=== PATIENT | female | born 1960 | race Caucasian/White ===

== ENCOUNTER 2019-08-29 12:43 | Outpatient (CLI) | payer OTHER ==
--- NOTE | 2019-08-30 09:26 | XRAY Report ---
Reason: LUMBAGO W/SCIATICA Procedure Date: 08/29/2019 Accession Number: [id number] / [id number] Procedure: XR - Lumbar Spine Complete CPT Code: Final Report FULL RESULT: EXAM: LUMBOSACRAL SPINE RADIOGRAPHY EXAM DATE: 08/29/2019 12:59 PM. CLINICAL HISTORY: Lumbago with sciatica. COMPARISONS: None. TECHNIQUE: 3 views. FINDINGS: 5 [id number] lumbar vertebral bodies. No vertebral body compressive change detected to indicate fracture. No pathologic subluxation. Mild disk space narrowing at L2-L3. Minimal associated vertebral body endplate osteophytic spurring. The imaged portions of the sacroiliac joints appear within normal limits. Surgical clips bilaterally in the true pelvis suggest previous tubal ligation. IMPRESSION: Mild degenerative changes in the upper lumbar spine. No fracture or pathologic subluxation identified. RADIA
== END 2019-08-29 12:44 | disposition home or self-care (01) ==
LOC: DI 12:43
PROVIDERS: ATTEND Nurse Practitioner Family
DX: M47.816 Spondylosis without myelopathy or radiculopathy, lumbar region (principal)
CPT/HCPCS: 72110

== ENCOUNTER 2019-09-05 08:24 | Outpatient (CLI) | payer OTHER ==
--- NOTE | 2019-09-05 16:22 | XRAY Report ---
Reason: SCIATICA Procedure Date: 09/05/2019 Accession Number: [id number] / [id number] Procedure: XR - Sacrum/Coccyx CPT Code: Final Report FULL RESULT: EXAM: SACRUM AND COCCYX RADIOGRAPHY EXAM DATE: 09/05/2019 08:41 AM. HISTORY: SCIATICA. Chronic back pain. COMPARISONS: LUMBAR SPINE COMPLETE 08/29/2019 12:49 PM. TECHNIQUE: 3 views. FINDINGS: Alignment: Normal. The sacrum and coccyx are normally aligned. Bones: Normal. No fracture or bone lesion. Joints: Normal. The sacroiliac joints and visualized hips are within normal limits. Soft Tissues: Clips from bilateral tubal ligation. IMPRESSION: Normal sacrum and coccyx radiography. RADIA
== END 2019-09-05 08:25 | disposition home or self-care (01) ==
LOC: DI 08:24
PROVIDERS: ATTEND Nurse Practitioner Family
DX: M54.40 Lumbago with sciatica, unspecified side (principal)
CPT/HCPCS: 72220

== ENCOUNTER 2019-10-27 11:11 | Outpatient (CLI) | payer OTHER | END 2019-10-27 11:12 | disposition home or self-care (01) | LOC: LAB 11:11 | PROVIDERS: ATTEND Surgery | DX: Z01.812 Encounter for preprocedural laboratory examination (principal); Z20.828 Contact with and (suspected) exposure to other viral communicable diseases; K92.1 Melena | CPT/HCPCS: 81599 ==

== ENCOUNTER 2019-10-31 06:18 | Day surgery (SDC) | payer OTHER ==
[2019-10-31] MEDS ORDERED: MIDAZOLAM 2 MG/2 ML VIAL IVP ONE (06:19)
[2019-10-31] MEDS ORDERED: fentaNYL 250 MCG/5 ML VIAL IVP ONE (06:19)
[2019-10-31] MEDS ORDERED: LACTATED RINGERS 1,000 ML IV ONE ×2 (06:20→08:52)
--- NOTE | 2019-10-31 09:30 | ANESTHESIA ---
Pre-Anesthesia VS, & Labs - Diagnosis screening colonoscopy - Procedure colonoscopy Vital Signs: Temp Pulse Resp BP Pulse Ox 36.5 C 67 16 129/76 98 10/31/19 09:15 10/31/19 09:15 10/31/19 09:15 10/31/19 09:15 10/31/19 09:15 Height 5 ft 3 in Weight (kg) 47.2 kg - NPO >8 hours - Is Patient ?: No Home Medications and Allergies Home Medications: Ambulatory Orders Meloxicam 7.5 mg PO 10/31/19 Acetaminophen [Tylenol] 650 mg PO Q6H PRN 02/29/16 Ibuprofen 200 mg PO .FREQ 02/29/16 Meloxicam 7.5 mg PO 10/31/19 Allergies/Adverse Reactions: Allergies Allergy/AdvReac Type Severity Reaction Status Date / Time hydrocodone bitartrate * AdvReac Unknown Verified 10/31/19 06:34 [From Vicodin] Anes History & Medical History - Anesthetic History Anesthesia Complications: reports: No previous complications - Medical History Cardiovascular: reports: Murmur Pulmonary: reports: Other Gastrointestinal: reports: GERD, Other Urinary: reports: Kidney stones Musculoskeletal: reports: None Endocrine/Autoimmune: reports: None Skin: reports: None Smoking Status: Current every day smoker - Surgical History General: Appendectomy Exam General: Moderate distress, Other (sedated) Dental: WNL Cardiovascular: Regular rate Plan Anesthesia Type: MAC Consent for Procedure(s) Verified and Reviewed: Yes Code Status: Attempt Resuscitation ASA classification: 2-Mild systemic disease Is this case an emergency?: No (called in to rescue inadequate sedation )
[2019-10-31 09:36] VITALS: BP 130/70
== END 2019-10-31 06:19 | disposition home or self-care (01) ==
LOC: SDS 06:18
PROVIDERS: ATTEND Surgery
PROC: 0DBM8ZZ Excision of Descending Colon, Via Natural or Artificial Opening Endoscopic (ICD-10-PCS; principal; 2019-10-31 07:30)
DX: D12.4 Benign neoplasm of descending colon (principal); K57.30 Diverticulosis of large intestine without perforation or abscess without bleeding; Z80.0 Family history of malignant neoplasm of digestive organs; Z87.891 Personal history of nicotine dependence
CPT/HCPCS: 45380; 88305; J3010; J7120

== ENCOUNTER 2020-01-08 15:00 | Outpatient (CLI) | payer OTHER ==
--- NOTE | 2020-01-08 17:13 | Ultrasound Report ---
PROCEDURE: Retroperitoneal INDICATIONS: Flank pain, dysuria. TECHNIQUE: Real-time scanning was performed of the kidneys and urinary bladder, with real-time image documentati on.. COMPARISON: None. FINDINGS: Kidneys: Both kidneys are normal in size with normal cortical thickness and echogenicity. There is ge neralized mild right hydronephrosis. Approximately 4 mm calculus in the right lower pole. No hydronep hrosis or calculus identified on the left. There is a bladder mass measuring approximately 1.2 x 1.1 x 1.0 cm with internal vascularity and smal l internal microcalcifications. IMPRESSION: Solid urinary bladder mass with vascularity. Findings highly suspicious for neoplasm. Cystoscopy lobo mmended for tissue diagnosis. Mild right hydronephrosis could be related to the bladder mass although there is a small right infer ior pole calculus suggesting that an additional mildly obstructing urinary calculus could be present in the right collecting system. Consider a completion CT urography for further evaluation of the collecting system and bladder mass. Reviewed by: Greg Garcia MD on 01/08/2020 5:11 PM PDT Approved by: Greg Garcia MD on 01/08/2020 5:11 PM PDT Station ID: [id number]
== END 2020-01-08 15:01 | disposition home or self-care (01) ==
LOC: DI 15:00
PROVIDERS: ATTEND Registered Nurse
DX: R93.89 Abnormal findings on diagnostic imaging of other specified body structures (principal); N13.30 Unspecified hydronephrosis; N20.9 Urinary calculus, unspecified
CPT/HCPCS: 76770

== ENCOUNTER 2020-01-22 12:20 | Outpatient (CLI) | payer OTHER ==
--- NOTE | 2020-01-22 15:42 | CT Report ---
PROCEDURE: Low Dose Lung Cancer Screen INDICATIONS: TOBACCO ABUSE TECHNIQUE: Noncontrast low-dose 5 mm thick sections acquired from the pulmonary apices to the posterior costophr enic angles. 7 mm thick coronal and sagittal MIP reformats were then acquired. For radiation dose r eduction, the following was used: automated exposure control, adjustment of mA and/or kV according t o patient size. COMPARISON: None. FINDINGS: Image quality: Excellent. Lungs and pleura: Clustered within the left upper lobe near the apex are 3 separate radiodensities t he largest of which is most superiorly, posterior lateral, and measures up to 1 cm but with additiona l age-related margins extending beyond. This appears to have a component of solid and some solid comb ined. Slightly more inferiorly and more anterior and posterior to the first nodule are 2 separate sub solid nodules the more posterior of which measures up to 1.4 cm and the more anterior which measures up to 0.9 cm. Mediastinum: Heart size is normal. No pericardial effusion. No mediastinal adenopathy by size crit eria. Thoracic aorta and central pulmonary arteries are normal in size. Esophagus is normal in rios carisa. No hiatal hernia. Bones and chest wall: No suspicious bony lesions. No vertebral body compression fractures. No axil mao or supraclavicular adenopathy by size criteria. The thyroid is normal in size. Bilateral breas t implants, without evidence of implant rupture. Abdomen: Visualized upper abdomen solid organs and bowel loops appear normal in the absence of contr ast. IMPRESSION: 3 separate foci are present within the left upper lobe near the apex showing imaging fin dings of both solid and some solid components, and are potentially a manifestation of clustered foci of infection but also clustered foci of neoplasm is a potential alternative etiology. Lung RADS categ ory 4A, follow-up CT scanning in 3 months is recommended. Based on imaging findings at that time foll ow-up by nuclear medicine PET/CT may become necessary. Reviewed by: Adal Juarez MD on 01/22/2020 3:41 PM PDT Approved by: Adal Juarez MD on 01/22/2020 3:41 PM PDT Station ID: [id number]
== END 2020-01-22 12:21 | disposition home or self-care (01) ==
LOC: DI 12:20
PROVIDERS: ATTEND Registered Nurse
DX: Z12.2 Encounter for screening for malignant neoplasm of respiratory organs (principal); R91.8 Other nonspecific abnormal finding of lung field; F17.210 Nicotine dependence, cigarettes, uncomplicated
CPT/HCPCS: G0297 ×2

== ENCOUNTER 2020-01-22 12:23 | Outpatient (CLI) | payer OTHER ==
--- NOTE | 2020-01-24 07:17 | Mammography Report ---
BILATERAL DIGITAL SCREENING MAMMOGRAM 3D/2D WITH AUGMENTATION: 01/22/2020 CLINICAL: Patient presents for routine screening. S/P bilateral augmentation. No prior exams were available for comparison. The tissue of both breasts is heterogeneously dense. T his may lower the sensitivity of mammography. Bilateral breast implants are intact. No significant masses, calcifications, or other findings are seen in either breast. IMPRESSION: NEGATIVE There is no mammographic evidence of malignancy. A 1 year screening mammogram is recommended. This exam was interpreted at Station ID: [id number]. NOTE: For mammograms, a report in lay terms will be sent to the patient. Approximately 15% of breast malignancies will not be visualized mammographically. In the management of a palpable breast mass, a negative mammogram must not discourage biopsy of a clinically suspicious lesion. Electronically Signed By: Charles bhatia/deanna:01/22/2020 16:57:05 ACR BI-RADS Category 1: Negative 3341F PARENCHYMAL PATTERN: (D) - The breast(s) demonstrate(s) heterogeneously dense fibroglandular maria de jesus dietz. BI-RADS CATEGORY: (1) - 1 RECOMMENDATION: (ANNUAL) - Recommend routine annual screening mammography. [id number] 1 year screening LATERALITY: (B)
== END 2020-01-22 12:24 | disposition home or self-care (01) ==
LOC: DI 12:23
PROVIDERS: ATTEND Registered Nurse
DX: Z12.31 Encounter for screening mammogram for malignant neoplasm of breast (principal); Z80.3 Family history of malignant neoplasm of breast; Z98.82 Breast implant status
CPT/HCPCS: 77063; 77067

== ENCOUNTER 2020-01-30 12:44 | Outpatient (CLI) | payer OTHER ==
[2020-01-30] MEDS ORDERED: IOVERSOL 320 100 ML VIAL IVP ONE ×3 (13:07→13:48)
[2020-01-30 13:25] LABS: CREATININE 0.6 mg/dL (0.4-1.0)
--- NOTE | 2020-01-31 08:23 | CT Report ---
PROCEDURE: IVP INDICATIONS: HX OF GROSS HEMATURIA, BLADDER MASS CONTRAST: IV CONTRAST: Optiray 320 ml: 140 PO CONTRAST: *NO PO CONTRAST TECHNIQUE: After the administration of intravenous contrast, 5 mm thick sections acquired from the diaphragms to the symphysis. 5 mm thick coronal and sagittal reformats were acquired. For radiation dose reducti on, the following was used: automated exposure control, adjustment of mA and/or kV according to dany ent size. COMPARISON: None. FINDINGS: Image quality: Excellent. Lung bases: Lung bases are clear. Heart size is normal. Urinary system: Both kidneys are normal in size and enhancement. There are 2 stones in the lower po le the right kidney, the larger of which measures 3 mm. There are 3 tiny stones in the lower pole of the left kidney, the largest of which measures 2 mm. There is no hydronephrosis on either side. Contr ast-filled renal calyces are normal in morphology. Contrast filled portions of both ureters are norm al in caliber. There is a polypoid mass along the left base of bladder measures approximately 0.7 x 1 .0 x 1.0 cm. The bladder wall is otherwise thin. Solid organs: There is a indeterminant hypodense lesion in segment segment of the right lobe of the liver measuring approximately 2.9 x 1.6 x 2.5 cm. No other liver lesions are identified. Liver and sp danay are normal in size and enhancement. Gallbladder is unremarkable. Biliary system is non dilated . Pancreas enhances normally. No adrenal nodules. Peritoneum and bowel: Bowel loops demonstrate normal wall thickness and caliber. No free fluid or a ir. Nodes and vessels: No retroperitoneal or mesenteric adenopathy by size criteria. Aorta and inferior vena cava are normal in size. Abdominal wall: No ventral hernias. Pelvis: No pathologic free pelvic fluid. No inguinal hernias or adenopathy. Tubal ligation clips. Bones: No suspicious bony lesions. No vertebral body compression fractures. IMPRESSION: 1. 1.0 cm maximum diameter polypoid mass off the left base of the bladder. 2. No suspicious kidney or ureter lesions. No hydronephrosis. 3. Bilateral small nonobstructing renal stones. 4. Indeterminate liver mass measuring 2.9 cm in maximum diameter. Comment: Recommend multiphase MRI to further evaluate the liver lesion. Reviewed by: Emir Desir MD on 01/31/2020 8:22 AM PDT Approved by: Emir Desir MD on 01/31/2020 8:22 AM PDT Station ID: [id number]
== END 2020-01-30 12:45 | disposition home or self-care (01) ==
LOC: DI 12:44
PROVIDERS: ATTEND Urology
DX: N32.89 Other specified disorders of bladder (principal); N20.0 Calculus of kidney; R31.0 Gross hematuria; R16.0 Hepatomegaly, not elsewhere classified; Z87.891 Personal history of nicotine dependence
CPT/HCPCS: 36415; 74178; 82565; 84520; Q9967

== ENCOUNTER 2020-02-15 11:21 | Outpatient (CLI) | payer OTHER | END 2020-02-15 11:22 | disposition home or self-care (01) | LOC: LAB 11:21 | PROVIDERS: ATTEND Urology | DX: N32.89 Other specified disorders of bladder (principal) | CPT/HCPCS: 87086 ==

== ENCOUNTER 2020-04-22 13:26 | Outpatient (CLI) | payer OTHER ==
--- NOTE | 2020-04-22 16:44 | CT Report ---
PROCEDURE: CHEST WO INDICATIONS: MULTIPLE NODULES OF LUNG TECHNIQUE: Noncontrast 5 mm thick sections acquired from the pulmonary apices to the posterior costophrenic angl es. 7 mm thick coronal and sagittal MIP reformats were then acquired. For radiation dose reduction, the following was used: automated exposure control, adjustment of mA and/or kV according to patient size. COMPARISON: CT IVP 01/30/2020. CT lung cancer screening 01/22/2020 FINDINGS: Image quality: Excellent. Lungs and pleura: A few pulmonary nodules in the left upper lobe. For example: -Left upper lobe 1.1 x 1.1 cm, (4/56), previously 1.1 x 1 cm. Spiculated appearance. -Left upper lobe nodular opacity 0.9 x 0.7 cm (4/61), previously 0.9 x 0.7 cm. No new or enlarging pulmonary nodules. Biapical pleural scarring. Moderate emphysematous change. No p leural effusions or pneumothorax. Central airways are clear. 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 A few mildly prominent bronchioles in the left upper lobe associated with the pulmonary nodules. A few small pulmo nary cysts. Mediastinum: Heart size is normal. Mild coronary artery calcifications in the LAD. No pericardial ef fusion. No mediastinal adenopathy by size criteria. Thoracic aorta and central pulmonary arteries a re normal in size. Esophagus is normal in caliber. No hiatal hernia. Bones and chest wall: No suspicious bony lesions. Suspect prior right-sided rib fractures. No verteb ral body compression fractures. No axillary or supraclavicular adenopathy by size criteria. The thy roid is normal in size. Bilateral breast implants. Abdomen: Visualized upper abdominal solid organs and bowel loops appear normal in the absence of con trast. Punctate nonobstructing left kidney stones are seen. IMPRESSION: Left upper lobe pulmonary nodules measuring up to 1.1 cm are unchanged in the short-term interval. Th everette nodules have a spiculated appearance. Additionally, recent CT demonstrates a mass in the bladder. This increases the suspicion for metastat ic disease rather than infectious/inflammatory etiology. PET/CT could be performed for further characterization or follow-up CT chest in 6 months. Reviewed by: Kyle Acevedo MD on 04/22/2020 3:43 PM [facility] Approved by: Kyle Acevedo MD on 04/22/2020 3:43 PM [place] Station ID: [id number]
== END 2020-04-22 13:27 | disposition home or self-care (01) ==
LOC: DI 13:26
PROVIDERS: ATTEND Registered Nurse
DX: R91.8 Other nonspecific abnormal finding of lung field (principal); N32.89 Other specified disorders of bladder
CPT/HCPCS: 71250

== ENCOUNTER 2020-05-20 08:00 | Outpatient (CLI) | payer OTHER | END 2020-05-20 23:59 | disposition home or self-care (01) | LOC: LAB.R 08:00 | PROVIDERS: ATTEND Physician Assistant | DX: N30.01 Acute cystitis with hematuria (principal); R30.0 Dysuria | CPT/HCPCS: 87086 ==